=== PATIENT | female | born 1955 | race Caucasian/White ===

== ENCOUNTER → 2017-01-06 | Outpatient (CLI) | payer BC ==
--- NOTE | 2017-01-07 13:24 | CT ---
EXAM DATE: 01/06/17 PATIENT'S AGE: 61 Patient: HOLLI BRIAN Facility: [place], [place] Site . Site : 1955 Study: CT Facial [id number]/10/2017 11:23:51 AM Ordering Physician: Eamon Kline Final Report: INDICATION: Chronic sinusitis. TECHNIQUE: CT sinus without contrast. COMPARISON: None. FINDINGS: Paranasal sinuses: Prominent retention cyst is in the left maxillary sinus. Mucosal thickening is present in both maxillary sinuses. Remainder of the paranasal sinuses are clear. The ostiomeatal units are obstructed bilaterally by mucosal thickening. The fovea ethmoidalis and orbital donovan are intact. The nasal septum is midline and intact. The nasal turbinates are normal. Orbits and globes: Unremarkable. Visualized intracranial contents: Unremarkable. Soft tissues: Unremarkable. IMPRESSION: Moderate bilateral maxillary inflammatory sinus disease with obstruction of the ostiomeatal units. Dictated by Moises Blackwood MD @ Jan 07 2017 6:58AM (Electronic Signature) Report Signed by Proxy and Original Signed Document filed in the Medical Record. [facility]
== END ==
LOC: MW.DI 09:59
PROVIDERS: ATTEND Otolaryngology
DX: J32.9 Chronic sinusitis, unspecified (principal); J32.0 Chronic maxillary sinusitis; J34.89 Other specified disorders of nose and nasal sinuses
CPT/HCPCS: 70486; 70486-26

== ENCOUNTER → 2017-01-14 | Outpatient (CLI) | payer BC | LOC: MW.CHENT 16:03 | PROVIDERS: ATTEND Otolaryngology | DX: J31.0 Chronic rhinitis (principal); H93.12 Tinnitus, left ear | CPT/HCPCS: 36415; 82784; 82785; 82787; 86003; 86317 ==

== ENCOUNTER 2020-04-08 12:14 | Emergency (ER) | payer OTHER ==
[2020-04-08] MEDS ORDERED: Sodium Chloride 0.9% 10 ML Syringe FLUSH PRN (12:26)
[2020-04-08] MEDS ORDERED: Aspirin 81 MG Tab.Chew PO ONE (12:26)
[2020-04-08] MEDS ORDERED: Sodium Chloride 0.9% 2.5 ML Syringe FLUSH PRN ×2 (12:26)
--- NOTE | 2020-04-08 12:29 | EDM.PDOC ---
ED HPI GENERAL MEDICAL PROBLEM - General Chief Complaint: Chest Pain Stated Complaint: CHEST PAIN Time Seen by Provider: 04/08/20 12:30 - History of Present Illness INITIAL COMMENTS - FREE TEXT/NARRATIVE: History of present illness: Patient presents with chest pain that began approximately 30 minutes ago sharp left-sided made her short of breath and went away after she arrived in the ED no nausea or vomiting no diaphoresis no leg pain leg swelling no cough congestion no fever chills nothing seems to make it better or worse it went away by itself she has been undergoing some testing because of having some palpitations and low heart rate she apparently had an echo recently but she does not have the results for these things they were done at another facility. She has no history of diabetes smoking or high blood pressure. Review of systems: As per history of present illness and below otherwise all systems reviewed and negative. Past medical history: As per history of present illness and as reviewed below otherwise noncontributory. Surgical history: As per history of present illness and as reviewed below otherwise noncontributory. Social history: No reported history of drug or alcohol abuse. Family history: As per history of present illness and as reviewed below otherwise noncontributory. Physical exam: HEENT: Atraumatic, normocephalic, pupils reactive, negative for conjunctival pallor or scleral icterus, mucous membranes moist, throat clear, neck supple, nontender, trachea midline. Lungs: Clear to auscultation, breath sounds equal bilaterally, chest nontender. Heart: S1S2, regular, negative for clicks, rubs, or JVD. Abdomen: Soft, nondistended, nontender. Negative for masses or hepatosplenomegaly. Negative for costovertebral tenderness. Pelvis: Stable nontender. Genitourinary: Deferred. Rectal: Deferred. Extremities: Atraumatic, negative for cords or calf pain. Neurovascular unremarkable. Neuro: Awake, alert, oriented. Cranial nerves II through XII unremarkable. Cerebellum unremarkable. Motor and sensory unremarkable throughout. Exam nonfocal. Diagnostics: [] Therapeutics: [] Impression: [] Plan: Cardiac work-up chest x-ray reassess. [] Definitive disposition and diagnosis as appropriate pending reevaluation and review of above. chest Pain Score (Numeric/FACES): 8 - Related Data Allergies Allergy/AdvReac Type Severity Reaction Status Date / Time amoxicillin Allergy Cannot Verified 04/08/20 12:35 Remember Penicillins Allergy Cannot Verified 04/08/20 12:35 Remember Home Meds: Home Meds Budesonide/Formoterol [Symbicort 160-4.5 MCG] 2 puff INH BID 04/08/20 [History] Ferrous Sulfate 324 mg PO DAILY 04/08/20 [History] Omeprazole 20 mg PO BIDAC 04/08/20 [History] ED ROS GENERAL - Review of Systems Review Of Systems: See Below ED EXAM, GENERAL - Physical Exam Exam: See Below EKG INTERPRETATION EKG Interpretation Comments: EKG is normal sinus rhythm rate 82 bpm occasional unifocal PVC nonspecific ST-T changes no harika ischemia read and interpreted by me Course - Vital Signs Text/Narrative:: EKG was nonischemic 2 troponins are negative chest x-ray 1 view read interpreted by me no acute cardiopulmonary pathology is evident. Will be discharged she is going to follow-up with her primary care doctors return to the ED for crushing chest pain or other concerns over the weekend. Last Recorded V/S: Last Vital Signs Temp 36.0 C L 04/08/20 12:16 Pulse 67 04/08/20 13:22 Resp 17 04/08/20 13:22 BP 146/68 H 04/08/20 13:22 Pulse Ox 95 04/08/20 13:22 - Orders/Labs/Meds Orders: Active Orders 24 hr Category Date Time Status EKG Documentation Completion [RC] STAT Care 04/08/20 12:27 Active Sodium Chloride 0.9% [Saline Flush] Med 04/08/20 12:26 Active 10 ml FLUSH ASDIRECTED PRN Sodium Chloride 0.9% [Saline Flush] Med 04/08/20 12:26 Active 2.5 ml FLUSH ASDIRECTED PRN Sodium Chloride 0.9% [Saline Flush] Med 04/08/20 12:26 Active 2.5 ml FLUSH ASDIRECTED PRN Saline Lock Insert [OM.PC] Stat Oth 04/08/20 12:26 Ordered Medication Orders Sodium Chloride (Saline Flush) 2.5 ml FLUSH ASDIRECTED PRN PRN Reason: Keep Vein Open Last Admin: 04/08/20 12:36 Dose: 2.5 ml Documented by: RAS Sodium Chloride (Saline Flush) 2.5 ml FLUSH ASDIRECTED PRN PRN Reason: Keep Vein Open Last Admin: 04/08/20 12:36 Dose: 2.5 ml Documented by: RAS Sodium Chloride (Saline Flush) 10 ml FLUSH ASDIRECTED PRN PRN Reason: Keep Vein Open Last Admin: 04/08/20 12:36 Dose: 10 ml Documented by: RAS Labs: Laboratory Tests 04/08/20 04/08/20 04/08/20 Range/Units 12:34 12:34 14:23 WBC 9.69 (4.0-11.0) K/uL RBC 4.79 (4.30-5.90) M/uL Hgb 11.9 L (12.0-16.0) g/dL Hct 39.6 (36.0-46.0) % MCV 82.7 (80.0-98.0) fL MCH 24.8 L (27.0-32.0) pg MCHC 30.1 L (31.0-37.0) g/dL RDW Std Deviation 47.6 (28.0-62.0) fl RDW Coeff of Josiah 16 H (11.0-15.0) % Plt Count 313 (150-400) K/uL MPV 11.10 (7.40-12.00) fL Neut % (Auto) 53.5 (48.0-80.0) % Lymph % (Auto) 32.9 (16.0-40.0) % Wheeler % (Auto) 7.3 (0.0-15.0) % Eos % (Auto) 5.2 (0.0-7.0) % Baso % (Auto) 1.1 (0.0-1.5) % Neut # (Auto) 5.2 (1.4-5.7) K/uL Lymph # (Auto) 3.2 H (0.6-2.4) K/uL Wheeler # (Auto) 0.7 (0.0-0.8) K/uL Eos # (Auto) 0.5 (0.0-0.7) K/uL Baso # (Auto) 0.1 (0.0-0.1) K/uL Nucleated RBC % 0.0 /100WBC Nucleated RBCs # 0 K/uL Sodium 141 (136-145) mmol/L Potassium 3.9 (3.5-5.1) mmol/L Chloride 105 (98-107) mmol/L Carbon Dioxide 25.5 (21.0-32.0) mmol/L BUN 11 (7.0-18.0) mg/dL Creatinine 1.0 (0.6-1.0) mg/dL Est Cr Clr Drug Dosing 48.43 mL/min Estimated GFR (MDRD) 55.6 ml/min Glucose 104 (74-106) mg/dL Calcium 9.0 (8.5-10.1) mg/dL Total Bilirubin 0.2 (0.2-1.0) mg/dL AST 19 (15-37) IU/L ALT 23 (14-63) IU/L Alkaline Phosphatase 127 H (46-116) U/L Troponin I < 0.050 < 0.050 (0.000-0.056) ng/mL Total Protein 7.2 (6.4-8.2) g/dL Albumin 3.8 (3.4-5.0) g/dL Globulin 3.4 (2.6-4.0) g/dL Albumin/Globulin Ratio 1.1 (0.9-1.6) Meds: Medications Generic Name Dose Route Start Last Admin Trade Name Freq PRN Reason Stop Dose Admin Sodium Chloride 2.5 ml 04/08/20 12:26 04/08/20 12:36 Saline Flush FLUSH 2.5 ml ASDIRECTED PRN Administration Keep Vein Open Sodium Chloride 2.5 ml 04/08/20 12:26 04/08/20 12:36 Saline Flush FLUSH 2.5 ml ASDIRECTED PRN Administration Keep Vein Open Sodium Chloride 10 ml 04/08/20 12:26 04/08/20 12:36 Saline Flush FLUSH 10 ml ASDIRECTED PRN Administration Keep Vein Open Discontinued Medications Generic Name Dose Route Start Last Admin Trade Name Freq PRN Reason Stop Dose Admin Aspirin 324 mg 04/08/20 12:26 04/08/20 12:36 Aspirin PO 04/08/20 12:27 324 mg ONETIME ONE Administration Aspirin Confirm 04/08/20 12:35 04/08/20 12:39 Aspirin Administered 04/08/20 12:36 Not Given Dose 324 mg .ROUTE .STK-MED ONE Departure - Departure Time of Disposition: 15:50 Disposition: Home, Self-Care 01 Condition: Good Clinical Impression: Chest pain - Discharge Information *PRESCRIPTION DRUG MONITORING PROGRAM REVIEWED*: Not Applicable *COPY OF PRESCRIPTION DRUG MONITORING REPORT IN PATIENT PARTH: Not Applicable Instructions: Nonspecific Chest Pain, Adult Referrals: Geno Richards NP [Primary Care Provider] - Forms: ED Department Discharge Additional Instructions: The following information is given to patients seen in the emergency department who are being discharged to home. This information is to outline your options for follow-up care. We provide all patients seen in our emergency department with a follow-up referral. The need for follow-up, as well as the timing and circumstances, are variable depending upon the specifics of your emergency department visit. If you don't have a primary care physician on staff, we will provide you with a referral. We always advise you to contact your personal physician following an emergency department visit to inform them of the circumstance of the visit and for follow-up with them and/or the need for any referrals to a consulting specialist. The emergency department will also refer you to a specialist when appropriate. This referral assures that you have the opportunity for follow-up care with a specialist. All of these measure are taken in an effort to provide you with optimal care, which includes your follow-up. Under all circumstances we always encourage you to contact your private physician who remains a resource for coordinating your care. When calling for follow-up care, please make the office aware that this follow-up is from your recent emergency room visit. If for any reason you are refused follow-up, please contact the [facility] Emergency Department at and asked to speak to the emergency department charge nurse. Sepsis Event Note (ED) - Focused Exam Vital Signs: Vital Signs Temp Pulse Resp BP Pulse Ox 04/08/20 13:22 67 17 146/68 H 95 04/08/20 13:07 65 174/77 H 95 04/08/20 12:52 67 17 176/75 H 94 L 04/08/20 12:37 69 189/85 H 96 04/08/20 12:16 36.0 C L 82 20 208/98 H 99 - My Orders Last 24 Hours: My Active Orders 04/08/20 12:26 Sodium Chloride 0.9% [Saline Flush] 10 ml FLUSH ASDIRECTED PRN Sodium Chloride 0.9% [Saline Flush] 2.5 ml FLUSH ASDIRECTED PRN Sodium Chloride 0.9% [Saline Flush] 2.5 ml FLUSH ASDIRECTED PRN Saline Lock Insert [OM.PC] Stat 04/08/20 12:27 EKG Documentation Completion [RC] STAT - Assessment/Plan Last 24 Hours: My Active Orders 04/08/20 12:26 Sodium Chloride 0.9% [Saline Flush] 10 ml FLUSH ASDIRECTED PRN Sodium Chloride 0.9% [Saline Flush] 2.5 ml FLUSH ASDIRECTED PRN Sodium Chloride 0.9% [Saline Flush] 2.5 ml FLUSH ASDIRECTED PRN Saline Lock Insert [OM.PC] Stat 04/08/20 12:27 EKG Documentation Completion [RC] STAT
[2020-04-08] MEDS ORDERED: Aspirin 81 MG Tab.Chew ONE (12:35)
[2020-04-08 13:07] LABS: BLOOD UREA NITROGEN,BUN 11 mg/dL (7.0-18.0); CARBON DIOXIDE,CO2 25.5 mmol/L (21.0-32.0); CHLORIDE,CL 105 mmol/L (98-107); GLUCOSE RANDOM 104 mg/dL (74-106); POTASSIUM,K 3.9 mmol/L (3.5-5.1); SODIUM,NA 141 mmol/L (136-145)
--- NOTE | 2020-04-08 13:08 | CR ---
INDICATION: Chest pain COMPARISON: None TECHNIQUE: A centimeter portable study was acquired. FINDINGS: TUBES AND LINES: None. HEART AND MEDIASTINUM: The heart size is normal. The mediastinal contour appears normal for patient age. LUNGS AND PLEURAL SPACES: The lungs appear normal.There pleural spaces are unremarkable. OSSEOUS STRUCTURES: Age-appropriate appearance. No acute focal finding. IMPRESSION: Normal single-view chest radiograph. Dictated by Francisco Almaguer MD @ Apr 08 2020 1:06PM Signed by Dr. Francisco Almaguer @ Apr 08 2020 1:07PM
== END 2020-04-08 16:30 | disposition home or self-care (01) ==
LOC: MW.ED 12:14
DX: R07.9 Chest pain, unspecified (principal); Z88.0 Allergy status to penicillin; Z88.1 Allergy status to other antibiotic agents; Z79.899 Other long term (current) drug therapy
CPT/HCPCS: 36415; 71045; 80053; 84484; 85025; 93005; 99285; A9270; 99284

== ENCOUNTER 2020-12-10 10:09 | Emergency (ER) | payer OTHER ==
[2020-12-10] MEDS ORDERED: Sodium Chloride 0.9% 2.5 ML Syringe FLUSH PRN (10:40)
[2020-12-10] MEDS ORDERED: Sodium Chloride 0.9% 10 ML Syringe FLUSH PRN (10:40)
[2020-12-10] MEDS ORDERED: Ketorolac 30 MG/ML SDV IVPUSH ONE (10:40)
[2020-12-10] MEDS ORDERED: Ondansetron 4 MG/2 ML SDV IVPUSH ONE (10:40)
[2020-12-10] MEDS ORDERED: Sodium Chloride 0.9% 1,000 ML IV ONE (10:40)
[2020-12-10] MEDS ORDERED: Morphine 4 MG/ML Syringe IVPUSH ONE (10:41)
[2020-12-10 11:26] LABS: BLOOD UREA NITROGEN,BUN 14 mg/dL (7.0-18.0); CHLORIDE,CL 102 mmol/L (98-107); GLUCOSE RANDOM 162 mg/dL (74-106); LIPASE 148 U/L (73-393); POTASSIUM,K 3.7 mmol/L (3.5-5.1); SODIUM,NA 141 mmol/L (136-145)
--- NOTE | 2020-12-10 11:31 | EDM.PDOC ---
ED HPI GENERAL MEDICAL PROBLEM - General Stated Complaint: PAIN IN SIDE FLANK Time Seen by Provider: 12/10/20 10:11 Source of Information: Reports: Patient History Limitations: Reports: No Limitations - History of Present Illness INITIAL COMMENTS - FREE TEXT/NARRATIVE: HISTORY AND PHYSICAL: History of present illness: Patient is a 65-year-old female presented to the ED with her daughter with concerns of RUQ abdominal pain since this morning. Patient states that she woke up in the middle her night with pain of her RUQ pain with nausea. Patient states that she has a history of gallstones and in the past has had "gallbladder attacks ". Patient states that this feels similar to her past gallbladder issues. Patient states that she has not followed up to get her gallbladder removed. She has a history of hyperlipidemia, hypertension, and COPD. Patient denies fever, chills, chest pain, shortness of breath, or cough. Denies headache, neck stiff ness, change in vision, syncope, or near syncope. Denies vomiting, abdominal pain, diarrhea, constipation, or dysuria. Has not noted any blood in urine or stool. Patient has been eating and drinking appropriately prior to onset of symptoms. Review of systems: As per history of present illness and below otherwise all systems reviewed and negative. Past medical history: As per history of present illness and as reviewed below otherwise noncontr ibutory. Surgical history: As per history of present illness and as reviewed below otherwise noncontributory. Social history: See social history for further information Family history: As per history of present illness and as reviewed below otherwise noncontributory. Physical exam: General: Patient is alert, oriented, and in no acute distress. Patient laying on exam table, holding her abdomen, appearing uncomfortable. Vitals stable and reviewed by me. HEENT: Atraumatic, normocephalic, pupils equal and reactive bilaterally, negative for conjunctival pallor or scleral icterus, mucous membranes moist, TMs normal bilaterally, throat clear, neck supple, nontender, trachea midline. No drooling or trismus noted. No meningeal signs. No hot potato voice noted. Lungs: Clear to auscultation, breath sounds equal bilaterally, chest nontender. Heart: S1S2, regular rate and rhythm without overt murmur Abdomen: Soft, nondistended, moderate-severe pain of the RUQ with positive muñoz sign, negative rebound. Negative for masses or hepatosplenomegaly. Negative for costovertebral tenderness. Pelvis: Stable nontender. Genitourinary: Deferred. Rectal: Deferred. Skin: Intact, warm, dry. No lesions or rashes noted. Extremities: Atraumatic, negative for cords or calf pain. Neurovascular unremarkable. Neuro: Awake, alert, oriented. Cranial nerves II through XII unremarkable. Cerebellum unremarkable. Motor and sensory unremarkable throughout. Exam nonfocal. Notes: On initial exam, patient is vitally stable but does appear quite uncomfortable holding her abdomen. She does have significant right upper quadrant tenderness with a positive Muñoz sign on exam. She does have a history of gallstones and I am concerned about possible gallbladder pathology. Will obtain labwork including cardiac evaluation as well as RUQ US and abd/pelvic CT scan w cont. See Dr. Moreno dictation for EKG interpretation Patient's lab work does show mild leukocytosis at 13.35 with a normal lactate. This x-ray shows no acute airspace disease. Right upper quadrant ultrasound shows gallstones with a mildly distended gallbladder. No gallbladder wall thickening or surrounding fluid. No biliary duct dilation. Abdominal pelvic CT scan shows a fluid-filled colon, possibly suggestive of diarrheal illness. No mural thickening, perienteric edema, mural stratification, or bowel obstruction. Small sliding-type hiatal hernia. Low- density pathic lesions which are consistent with benign cysts. Distended gallbladder. There is no adjacent fat stranding or pericholecystic fluid on CT. I did call and speak to the general surgeon on-call,Dr. Louise, general surgery, and thoroughly discussed patient's case and requested that she follows- up with him in the clinic outpatient. Upon reexamination of patient, she is much more comfortable given therapeutics today in the ED. She remains vitally stable. All diagnostics discussed with patient including all incidental findings of imaging today. Discussed importance for follow-up with a general surgeon as well as her primary care provider for incidental findings of imaging today. Strict return precautions thoroughly discussed with patient. Voices understanding and is agreeable to plan of care. Denies any further questions or concerns at this time. Diagnostics: EKG, CBC, CMP, UA, Trop, lipase, CXR, RUQ US, abdomen/pelvis CT with contrast Therapeutics: Normal saline, morphine, Zofran, Toradol, Dilaudid Prescription: None Impression: Symptomatic cholelithiasis RUQ abdominal pain Plan: 1. You can alternate ibuprofen and Tylenol as directed for pain and discomfort. 2. Follow-up with the general surgeon / primary care provider as discussed. Return to the ED as needed and as discussed. Definitive disposition and diagnosis as appropriate pending reevaluation and review of above. abdomen Pain Score (Numeric/FACES): 10 - Related Data Allergies Allergy/AdvReac Type Severity Reaction Status Date / Time amoxicillin Allergy Cannot Verified 12/10/20 11:23 Remember cefuroxime [From Ceftin] Allergy Other Verified 12/10/20 13:21 cephalexin [From Keflex] Allergy Other Verified 12/10/20 13:21 doxycycline Allergy Other Verified 12/10/20 13:21 erythromycin base Allergy Other Verified 12/10/20 13:21 Penicillins Allergy Cannot Verified 12/10/20 11:23 Remember Home Meds: Home Meds Budesonide/Formoterol [Symbicort 160-4.5 MCG] 2 puff INH BID 04/08/20 [History] Omeprazole 20 mg PO BIDAC 04/08/20 [History] Past Medical History Cardiovascular History: Reports: Other (See Below) Other Cardiovascular History: was on heart monitor on Fri-Fri for monitoring of slow heart rate Genitourinary History: Reports: None - Past Surgical History Cardiovascular Surgical History: Reports: None Female Surgical History: Reports: Tubal Ligation Musculoskeletal Surgical History: Reports: Knee Replacement, Other (See Below) Other Musculoskeletal Surgeries/Procedures:: bilateral knee; R arm sx Social & Family History - Family History Family Medical History: No Pertinent Family History - Caffeine Use Caffeine Use: Reports: None ED ROS GENERAL - Review of Systems Review Of Systems: Comprehensive ROS is negative, except as noted in HPI. ED EXAM, GENERAL - Physical Exam Exam: See Below (see dictation) Course - Vital Signs Last Recorded V/S: Last Vital Signs Temp 96.7 F L 12/10/20 10:33 Pulse 65 12/10/20 13:15 Resp 17 12/10/20 13:45 BP 119/39 L 12/10/20 13:15 Pulse Ox 96 12/10/20 13:45 - Orders/Labs/Meds Orders: Active Orders 24 hr Category Date Time Status EKG Documentation Completion [RC] STAT Care 12/10/20 10:41 Active Sodium Chloride 0.9% [Saline Flush] Med 12/10/20 10:40 Active 10 ml FLUSH ASDIRECTED PRN Sodium Chloride 0.9% [Saline Flush] Med 12/10/20 10:40 Active 2.5 ml FLUSH ASDIRECTED PRN Saline Lock Insert [OM.PC] Stat Oth 12/10/20 10:40 Ordered Medication Orders Sodium Chloride (Sodium Chloride 0.9% 10 Ml Syringe) 10 ml FLUSH ASDIRECTED PRN PRN Reason: Keep Vein Open Last Admin: 12/10/20 11:17 Dose: 10 ml Documented by: RAS Sodium Chloride (Sodium Chloride 0.9% 2.5 Ml Syringe) 2.5 ml FLUSH ASDIRECTED PRN PRN Reason: Keep Vein Open Last Admin: 12/10/20 11:17 Dose: 2.5 ml Documented by: RAS Labs: Laboratory Tests 12/10/20 12/10/20 12/10/20 Range/Units 10:51 10:51 11:48 WBC 13.35 H (4.0-11.0) K/uL RBC 4.70 (4.30-5.90) M/uL Hgb 13.5 (12.0-16.0) g/dL Hct 42.1 (36.0-46.0) % MCV 89.6 (80.0-98.0) fL MCH 28.7 (27.0-32.0) pg MCHC 32.1 (31.0-37.0) g/dL RDW Std Deviation 46.3 (28.0-62.0) fl RDW Coeff of Josiah 14 (11.0-15.0) % Plt Count 252 (150-400) K/uL MPV 10.90 (7.40-12.00) fL Neut % (Auto) 87.8 H (48.0-80.0) % Lymph % (Auto) 6.2 L (16.0-40.0) % [place] % (Auto) 5.0 (0.0-15.0) % Eos % (Auto) 0.7 (0.0-7.0) % Baso % (Auto) 0.3 (0.0-1.5) % Neut # (Auto) 11.7 H (1.4-5.7) K/uL Lymph # (Auto) 0.8 (0.6-2.4) K/uL [place] # (Auto) 0.7 (0.0-0.8) K/uL Eos # (Auto) 0.1 (0.0-0.7) K/uL Baso # (Auto) 0.0 (0.0-0.1) K/uL Nucleated RBC % 0.0 /100WBC Nucleated RBCs # 0 K/uL Sodium 141 (136-145) mmol/L Potassium 3.7 (3.5-5.1) mmol/L Chloride 102 (98-107) mmol/L Carbon Dioxide 29.0 (21.0-32.0) mmol/L BUN 14 (7.0-18.0) mg/dL Creatinine 1.1 H (0.6-1.0) mg/dL Est Cr Clr Drug Dosing 43.44 mL/min Estimated GFR (MDRD) 49.7 ml/min Glucose 162 H (74-106) mg/dL Calcium 8.8 (8.5-10.1) mg/dL Total Bilirubin 0.5 (0.2-1.0) mg/dL AST 21 (15-37) IU/L ALT 34 (14-63) IU/L Alkaline Phosphatase 142 H (46-116) U/L Troponin I < 0.050 (0.000-0.056) ng/mL Total Protein 7.6 (6.4-8.2) g/dL Albumin 3.7 (3.4-5.0) g/dL Globulin 3.9 (2.6-4.0) g/dL Albumin/Globulin Ratio 0.9 (0.9-1.6) Lipase 148 (73-393) U/L Urine Color YELLOW Urine Appearance SLT CLOUDY Urine pH 8.5 H (5.0-8.0) Ur Specific [place] 1.015 (1.001-1.035) Urine Protein NEGATIVE (NEGATIVE) mg/dL Urine Glucose (UA) NEGATIVE (NEGATIVE) mg/dL Urine Ketones NEGATIVE (NEGATIVE) mg/dL Urine Occult Blood NEGATIVE (NEGATIVE) Urine Nitrite NEGATIVE (NEGATIVE) Urine Bilirubin NEGATIVE (NEGATIVE) Urine Urobilinogen 0.2 (<2.0) EU/dL Ur Leukocyte Esterase NEGATIVE (NEGATIVE) Meds: Medications Generic Name Dose Route Start Last Admin Trade Name Freq PRN Reason Stop Dose Admin Sodium Chloride 10 ml 12/10/20 10:40 12/10/20 11:17 Sodium Chloride 0.9% 10 Ml Syringe FLUSH 10 ml ASDIRECTED PRN Administration Keep Vein Open Sodium Chloride 2.5 ml 12/10/20 10:40 12/10/20 11:17 Sodium Chloride 0.9% 2.5 Ml Syringe FLUSH 2.5 ml ASDIRECTED PRN Administration Keep Vein Open Discontinued Medications Generic Name Dose Route Start Last Admin Trade Name Gualbertoq PRN Reason Stop Dose Admin Hydromorphone HCl 1 mg 12/10/20 12:48 12/10/20 13:18 Hydromorphone 1 Mg/Ml Syringe IVPUSH 12/10/20 12:49 1 mg ONETIME ONE Administration Sodium Chloride 1,000 mls @ 999 mls/hr 12/10/20 10:40 12/10/20 11:11 Normal Saline IV 12/10/20 11:40 999 mls/hr BOLUS ONE Administration Iopamidol 100 ml 12/10/20 12:11 12/10/20 12:12 Iopamidol 755 Mg/Ml 500 Ml Multipack Bottle IVPUSH 12/10/20 12:12 100 ml ONETIME ONE Administration Ketorolac Tromethamine 30 mg 12/10/20 10:40 12/10/20 11:14 Ketorolac 30 Mg/Ml Sdv IVPUSH 12/10/20 10:41 30 mg ONETIME ONE Administration Morphine Sulfate 4 mg 12/10/20 10:41 12/10/20 11:16 Morphine 4 Mg/Ml Syringe IVPUSH 12/10/20 10:42 4 mg ONETIME ONE Administration Ondansetron HCl 4 mg 12/10/20 10:40 12/10/20 11:11 Ondansetron 4 Mg/2 Ml Sdv IVPUSH 12/10/20 10:41 4 mg ONETIME ONE Administration Departure - Departure Time of Disposition: 13:02 Disposition: Home, Self-Care 01 Clinical Impression: Symptomatic cholelithiasis, Right upper quadrant abdominal pain - Discharge Information Instructions: Cholelithiasis, [id number], Abdominal Pain, Adult, [id number], Gallbladder Eating Plan Referrals: PCP,None [Primary Care Provider] - Forms: ED Department Discharge Additional Instructions: The following information is given to patients seen in the emergency department who are being discharged to home. This information is to outline your options for follow-up care. We provide all patients seen in our emergency department with a follow-up referral. The need for follow-up, as well as the timing and circumstances, are variable depending upon the specifics of your emergency department visit. If you don't have a primary care physician on staff, we will provide you with a referral. We always advise you to contact your personal physician following an emergency department visit to inform them of the circumstance of the visit and for follow-up with them and/or the need for any referrals to a consulting specialist. The emergency department will also refer you to a specialist when appropriate. This referral assures that you have the opportunity for follow-up care with a sp ecialist. All of these measure are taken in an effort to provide you with optimal care, which includes your follow-up. Under all circumstances we always encourage you to contact your private physicia n who remains a resource for coordinating your care. When calling for follow-up care, please make the office aware that this follow-up is from your recent emergency room visit. If for any reason you are refused follow-up, please contact the [facility] Emergency Department at and asked to speak to the emergency department charge nurse. [facility] [address] [place] [id number] [address] [facility] Professional Building [address] [facility], [address] [place] [address] 1. You can alternate ibuprofen and Tylenol as directed for pain and discomfort. 2. Follow-up with the general surgeon / primary care provider as discussed. Return to the ED as needed and as discussed. Sepsis Event Note (ED) - Focused Exam Vital Signs: Vital Signs Temp Pulse Resp BP Pulse Ox 12/10/20 13:45 17 96 03/14/21 13:15 65 65 H 119/39 L 95 12/10/20 12:45 69 17 137/50 L 95 12/10/20 12:15 67 17 192/60 H 96 12/10/20 10:33 96.7 F L 66 19 174/77 H 94 L - My Orders Last 24 Hours: My Active Orders 12/10/20 10:40 Sodium Chloride 0.9% [Saline Flush] 10 ml FLUSH ASDIRECTED PRN Sodium Chloride 0.9% [Saline Flush] 2.5 ml FLUSH ASDIRECTED PRN Saline Lock Insert [OM.PC] Stat 12/10/20 10:41 EKG Documentation Completion [RC] STAT - Assessment/Plan Last 24 Hours: My Active Orders 12/10/20 10:40 Sodium Chloride 0.9% [Saline Flush] 10 ml FLUSH ASDIRECTED PRN Sodium Chloride 0.9% [Saline Flush] 2.5 ml FLUSH ASDIRECTED PRN Saline Lock Insert [OM.PC] Stat 12/10/20 10:41 EKG Documentation Completion [RC] STAT
--- NOTE | 2020-12-10 11:33 | US ---
HISTORY: Right upper quadrant abdominal pain. TECHNIQUE: Limited abdominal ultrasound. COMPARISON: No prior. FINDINGS: Pancreatic tail is obscured by bowel gas. No abnormality of the visualized portions of pancreas. Liver size within normal limits measuring 15 cm. No intrahepatic or extrahepatic biliary ductal dilatation. The gallbladder is distended. Gallstones are present. No gallbladder wall thickening. No surrounding fluid. Per the nanotechnology engineering technologist, the patient was tender over the gallbladder during scanning. The right kidney appears unremarkable. IMPRESSION: 1. Gallstones within a mildly distended gallbladder. No gallbladder wall thickening or surrounding fluid. Per the nanotechnology engineering technologist, the patient was tender over the gallbladder during scanning. 2. No biliary ductal dilatation. Dictated by Efraín Banda MD @ Dec 10 2020 11:30AM Signed by Dr. Efraín Banda @ Dec 10 2020 11:32AM
--- NOTE | 2020-12-10 11:36 | PCM.SN.2 ---
- Free Text/Narrative Note: The first-degree heart block with a rate of 66. [place] 227. [place] 73. Nonspecific ST changes in the inferior leads. Compared to 04/08/2020 PVCs are no longer present. First-degree block is new. Impression first-degree block no obvious injury.
[2020-12-10] MEDS ORDERED: Iopamidol 755 MG/ML 500 ML Multipack Bottle IVPUSH ONE (12:11)
--- NOTE | 2020-12-10 12:21 | CR ---
INDICATION: Dyspnea, chest pain. TECHNIQUE: Chest 1 view. COMPARISON: 04/08/2020. FINDINGS: Cardiovascular and mediastinum: Heart size and vasculature are normal in caliber and appearance. Mediastinum is within normal limits. Lungs and pleural space: Lungs are clear. No sign of infiltrate or mass. No sign of pleural effusion. No pneumothorax. Bones and soft tissues: No significant findings. IMPRESSION: No acute airspace disease. Dictated by César Betancourt MD @ Dec 10 2020 12:19PM Signed by Dr. César Betancourt @ Dec 10 2020 12:20PM
--- NOTE | 2020-12-10 12:34 | CT ---
HISTORY: Right upper quadrant abdominal pain. COMPARISON: Ultrasound of the abdomen, 12/10/2020. TECHNIQUE: CT of the abdomen and pelvis. 100 cc of [id number] IV. Coronal/sagittal reconstruction images. FINDINGS: Lung bases: There is a small sliding-type hiatal hernia. There is no pleural or pericardial effusion. Thin-walled cysts are present at both lung bases, likely emphysema. Right basilar dependent atelectasis. There is no acute airspace disease. There is no basilar pneumothorax. Abdomen/pelvis: Low-density hepatic lesions are compatible with benign cysts. There is no common bile duct stone or mass. The gallbladder is distended. There are no associated inflammatory changes. Cholelithiasis was noted on recent ultrasound. Gallstones are subtle on CT. There is no adrenal mass. There is no hydronephrosis. There is no perinephric fluid collection. There is no striated nephrogram. The spleen size is normal. There is no pancreatic mass or pancreatic duct dilation. There is no glandular atrophy. There is no free air. There is no adnexal mass. There is no mucosal hyper enhancement. There is no mural thickening or perienteric edema. The colon appears fluid filled. There is no evidence for appendicitis. Nonenlarged lymph nodes are present in the common femoral chains. There is no pelvic sidewall, retroperitoneal, or gastrohepatic ligament adenopathy. The bone windows demonstrate a fracture deformity of the left pubic bone, which is chronic. Degenerative changes at the symphysis pubis. Anterior/posterior columns of the acetabula are intact. Degenerative changes are present in the lower lumbar spine. The vertebral body heights are maintained on sagittal reconstruction images, with the exception of an age-indeterminate fracture deformity at T12. IMPRESSION: 1. Fluid-filled colon, which may be correlated for a history of diarrheal illness. 2. No mural thickening, perienteric edema, mural stratification, or bowel obstruction. 3. Small sliding type hiatal hernia. 4. Low-dense hepatic lesions are consistent with benign cysts. 5. Distended gallbladder. There is no adjacent fat stranding or pericholecystic fluid on CT. Please note that all CT scans at this facility use dose modulation, iterative reconstruction, and/or weight-based dosing when appropriate to reduce radiation dose to as low as reasonably achievable. Dictated by César Betancourt MD @ [facility] 2020 12:23PM Signed by Dr. César Betancourt @ [facility] 2020 12:32PM
[2020-12-10] MEDS ORDERED: HYDROmorphone 1 MG/ML Syringe IVPUSH ONE (12:48)
== END 2020-12-10 14:26 | disposition home or self-care (01) ==
LOC: MW.ED 10:09
DX: K80.20 Calculus of gallbladder without cholecystitis without obstruction (principal); Z88.0 Allergy status to penicillin; Z88.1 Allergy status to other antibiotic agents
CPT/HCPCS: 71045; 74177; 76705; 80053; 81003; 83690; 84484; 85025; 93005; 96374; 96375; 99284; J1170; J1885; J2270; J2405; J7030; Q9967

== ENCOUNTER 2020-12-13 08:46 | Day surgery (SDC) | payer OTHER ==
[~2020-12-13 08:46] MED LIST: Glycopyrrolate 0.2 MG/ML SDV ONE; Ketorolac 30 MG/ML SDV ONE; Lidocaine 2% 5 ML SDV ONE; Midazolam 1 MG/ML 2 ML SDV ONE; Ondansetron 4 MG/2 ML SDV ONE; Propofol 200 MG/20 ML SDV ONE; Rocuronium Bromide 50 MG/5 ML Syringe ONE; fentaNYL 100 MCG/2 ML SDV ONE
[2020-12-13] MEDS ORDERED: Lactated Ringers 1,000 ML IV SCH ×2 (09:00→11:45)
[2020-12-13] MEDS ORDERED: Ciprofloxacin in D5W 400 MG in Premix Bag 1 BAG IV SCH ×2 (09:00)
[2020-12-13] MEDS ORDERED: Acetaminophen 1,000 MG in Premix Bag 1 BAG IV PRN (09:25)
[2020-12-13] MEDS ORDERED: fentaNYL 100 MCG/2 ML SDV IVPUSH PRN (09:30)
[2020-12-13] MEDS ORDERED: Scopolamine 1.5 MG Transdermal Patch ONE (09:31)
[2020-12-13] MEDS ORDERED: ceFAZolin 1 GM Vial ONE (09:34)
[2020-12-13] MEDS ORDERED: Bupivacaine 0.5% 10 ML SDV ONE (09:34)
--- NOTE | 2020-12-13 09:39 | PCM.PREANE ---
Preanesthetic Assessment - Anesthesia/Transfusion/Family Hx Anesthesia History: Prior Anesthesia Without Reaction Family History of Anesthesia Reaction: No Transfusion History: No Prior Transfusion(s) - Review of Systems General: No Symptoms Pulmonary: No Symptoms Cardiovascular: No Symptoms Gastrointestinal: No Symptoms Neurological: No Symptoms Other: Reports: None - Physical Assessment NPO Status Date: 12/13/20 NPO Status Time: 06:00 Vital Signs: Last Vital Signs Temp 35.7 C L 12/13/20 09:02 Pulse 63 12/13/20 09:02 Resp 15 12/13/20 09:02 BP 141/67 H 12/13/20 09:02 Pulse Ox 96 12/13/20 09:02 Height: 1.63 m Weight: 92.079 kg ASA Class: 2 Mental Status: Alert & Oriented x3 Airway Class: Mallampati = 2 Dentition: Reports: Partial (right lower partial) Thyro-Mental Finger Breadths: 3 Mouth Opening Finger Breadths: 3 ROM/Head Extension: Full Lungs: Clear to Auscultation, Normal Respiratory Effort Cardiovascular: Regular Rate, Regular Rhythm - Allergies Allergies/Adverse Reactions: Allergies Allergy/AdvReac Type Severity Reaction Status Date / Time amoxicillin Allergy Rash Verified 12/12/20 12:44 cefuroxime [From Ceftin] Allergy Cannot Verified 12/12/20 12:44 Remember cephalexin [From Keflex] Allergy Cannot Verified 12/12/20 12:44 Remember ciprofloxacin [From Cipro] Allergy Cannot Verified 12/12/20 13:07 Remember doxycycline Allergy stomach Verified 12/12/20 12:44 upset/rash erythromycin base Allergy stomach Verified 12/12/20 12:44 upset/rash fentanyl Allergy Other Verified 12/12/20 13:07 metronidazole Allergy Diarrhea Verified 12/12/20 13:07 Penicillins Allergy Rash Verified 12/12/20 12:44 - Acknowledgements Anesthesia Type Planned: General Anesthesia (The patient understands and accepts the anesthetic risks and benefits of General Anesthesia. All questions answered. Consent signed. ) Pt an Appropriate Candidate for the Planned Anesthesia: Yes Alternatives and Risks of Anesthesia Discussed w Pt/Guardian: Yes Pt/Guardian Understands and Agrees with Anesthesia Plan: Yes PreAnesthesia Questionnaire HEENT History: Reports: Other (See Below) Other HEENT History: wears glasses, cherri hearing aids, upper partial Cardiovascular History: Reports: High Cholesterol, Hypertension, Other (See Below) (DECEMBER 10, 2020 EKG NSR.) Respiratory History: Reports: Asthma (used inhaler this morning. last time used was one month.), COPD (mild), Other (See Below) (DECEMBER 10, 2020 CXR NO ACUTE CARDIOPULMONARY DISEASE) Gastrointestinal History: Reports: Cholelithiasis, GERD (controlled), Other (See Below) Other Gastrointestinal History: ulcerative colitis Genitourinary History: Reports: None GUARD RANGE History: Reports: Musculoskeletal History: Reports: Fracture Other Musculoskeletal History: hx fx wrist and rt arm Neurological History: Reports: None Psychiatric History: Reports: Anxiety Endocrine/Metabolic History: Reports: Obesity/BMI 30+ (bmi 35), Osteopenia Hematologic History: Reports: None Immunologic History: Reports: None Oncologic (Cancer) History: Reports: None Dermatologic History: Reports: None - Infectious Disease History Infectious Disease History: Reports: Other (See Below) (COVID NEGATIVE) - Past Surgical History Head Surgeries/Procedures: Reports: None HEENT Surgical History: Reports: Other (See Below) (DENTAL EXTRACTIONS) Other HEENT Surgeries/Procedures: dental implant Cardiovascular Surgical History: Reports: None Respiratory Surgical History: Reports: None GI Surgical History: Reports: Colonoscopy Female Surgical History: Reports: Cystectomy (OVARIAN), D&C, Tubal Ligation Endocrine Surgical History: Reports: None Neurological Surgical History: Reports: None Musculoskeletal Surgical History: Reports: Knee Replacement, Other (See Below) Other Musculoskeletal Surgeries/Procedures:: bilateral partial knee replacements, R arm sx Oncologic Surgical History: Reports: None Dermatological Surgical History: Reports: None - History Comment History Comment: Patient has multiple drug allergies fentanyl, erythromyin, ciprofloxacin, ceftin-reactions are n/v, and no anaphylaxis. amoxicillin-causes a rash. Patient can't recall her reaction to metronidazole or keflex. These drug interactions were reviewed with the patient in great detail. - SUBSTANCE USE Tobacco Use Status *Q: Former Tobacco User (20 YEARS AGO.) Tobacco Use Within Last Twelve Months: No Days Per Week of Alcohol Use: 0 Recreational Drug Use History: No - HOME MEDS Home Medications: Home Meds Budesonide/Formoterol [Symbicort 160-4.5 MCG] 2 puff INH BID PRN 04/08/20 [History] Omeprazole 20 mg PO BIDAC 04/08/20 [History] Albuterol [Ventolin HFA] 2 puff INH ASDIRECTED PRN 12/12/20 [History] Alendronate Sodium 35 mg PO WEEKLY 12/12/20 [History] Calcium Carb, Citrate/Vit D3 [Calcium + D3 ER Tablet] 1 tab PO DAILY 12/12/20 [History] Cholecalciferol (Vitamin D3) [Vitamin D3] 1 tab PO DAILY 12/12/20 [History] Metoprolol Succinate 25 mg PO DAILY 12/12/20 [History] atorvaSTATin Calcium [Atorvastatin Calcium] 40 mg PO DAILY 12/12/20 [History] hydroCHLOROthiazide [Hydrochlorothiazide] 12.5 mg PO DAILY 12/12/20 [History] - CURRENT (IN HOUSE) MEDS Current Meds: Current Medications Fentanyl (Fentanyl 100 Mcg/2 Ml Sdv) 50 mcg IVPUSH Q5M PRN PRN Reason: Pain Ciprofloxacin/Dextrose 400 mg/ (Premix) 200 mls @ 200 mls/hr IV Q12H KAYKAY Lactated Ringer's (Ringers, Lactated) 1,000 mls @ 125 mls/hr IV ASDIRECTED KAYKAY Last Admin: 12/13/20 09:15 Dose: 125 mls/hr Documented by: Acetaminophen 1,000 mg/ Premix 100 mls @ 400 mls/hr IV Q6H PRN PRN Reason: Pain Discontinued Medications Fentanyl (Fentanyl 100 Mcg/2 Ml Sdv) Confirm Administered Dose 200 mcg .ROUTE .STK-MED ONE Stop: 12/13/20 07:28 Glycopyrrolate (Glycopyrrolate 0.2 Mg/Ml Sdv) Confirm Administered Dose 0.8 mg .ROUTE .STK-MED ONE Stop: 12/13/20 07:29 Ketorolac Tromethamine (Ketorolac 30 Mg/Ml Sdv) Confirm Administered Dose 30 mg .ROUTE .STK-MED ONE Stop: 12/13/20 07:29 Lidocaine (Lidocaine 2% 5 Ml Sdv) Confirm Administered Dose 5 ml .ROUTE .STK-MED ONE Stop: 12/13/20 07:29 Midazolam HCl (Midazolam 1 Mg/Ml 2 Ml Sdv) Confirm Administered Dose 2 mg .ROUTE .STK-MED ONE Stop: 12/13/20 07:28 Ondansetron HCl (Ondansetron 4 Mg/2 Ml Sdv) Confirm Administered Dose 4 mg .ROUTE .STK-MED ONE Stop: 12/13/20 07:29 Propofol (Propofol 200 Mg/20 Ml Sdv) Confirm Administered Dose 200 mg .ROUTE .STK-MED ONE Stop: 12/13/20 07:28 Rocuronium [place] (Rocuronium [place] 50 Mg/5 Ml Syringe) Confirm Administered Dose 50 mg .ROUTE .STK-MED ONE Stop: 12/13/20 07:29 Scopolamine (Scopolamine 1.5 Mg Transdermal Patch) Confirm Administered Dose 1.5 mg .ROUTE .STK-MED ONE Stop: 12/13/20 09:32
[2020-12-13] MEDS ORDERED: fentaNYL 100 MCG/2 ML SDV ONE ×2 (10:33→11:13)
[2020-12-13] MEDS ORDERED: Acetaminophen/HYDROcodone 325-5 MG Tab PO PRN (11:45)
[2020-12-13] MEDS ORDERED: Morphine 10 MG/ML Syringe IVPUSH PRN (11:45)
--- NOTE | 2020-12-13 11:48 | PCM.OPNOTE ---
- General Post-Op/Procedure Note Date of Surgery/Procedure: 12/13/20 Operative Procedure(s): Laparoscopic cholecystectomy Pre Op Diagnosis: Symptomatic cholelithiasis Post-Op Diagnosis: Cholelithiasis with chronic cholecystitis Anesthesia Technique: General ET Tube (ASA II) Primary Surgeon: Terry Louise Acid Adjuster: Gilberto Medrano Reason Acid Adjuster Was Necessary: Teaching purposes Fluid Replacement, Intraop: 1,100 Output, Urine Amount: 300 EBL in mLs: 20 Condition: Good Free Text/Narrative:: Intake & Output 12/12/20 12/13/20 12/13/20 19:59 03:59 11:59 Output Total 300 Balance -300 DICTATION 839007 CPT CODE 32471
--- NOTE | 2020-12-13 12:18 | PCM.POSTAN ---
POST ANESTHESIA ASSESSMENT - MENTAL STATUS Mental Status: Alert, Oriented - VITAL SIGNS Vital Signs: Last Vital Signs Temp 36.2 C 12/13/20 11:39 Pulse 47 L 12/13/20 12:10 Resp 14 12/13/20 12:10 BP 160/50 H 12/13/20 12:10 Pulse Ox 98 12/13/20 12:10 - RESPIRATORY Respiratory Status: Respiratory Rate WNL, Airway Patent, O2 Saturation Stable - CARDIOVASCULAR CV Status: Pulse Rate WNL, Blood Pressure Stable - GASTROINTESTINAL GI Status: No Symptoms - PAIN Pain Score: 0 - POST OP HYDRATION Hydration Status: Adequate & Stable - OBSERVATIONS Free Text/Narrative:: No anesthesia problems
--- NOTE | 2020-12-13 15:10 | PCM48HPAN ---
Post Anesthesia Note - EVALUATION WITHIN 48HRS OF ANESTHETIC Vital Signs in Normal Range: Yes Patient Participated in Evaluation: Yes Respiratory Function Stable: Yes Airway Patent: Yes Cardiovascular Function Stable: Yes Hydration Status Stable: Yes Pain Control Satisfactory: Yes Nausea and Vomiting Control Satisfactory: Yes Mental Status Recovered: Yes Vital Signs: Last Vital Signs Temp 36.2 C 12/13/20 12:14 Pulse 51 L 12/13/20 14:00 Resp 15 12/13/20 14:00 BP 154/66 H 12/13/20 14:00 Pulse Ox 98 12/13/20 14:00 - COMMENTS/OBSERVATIONS Free Text/Narrative:: No anesthesia problems
--- NOTE | 2020-12-13 19:20 | OR ---
SURGEON: Terry Louise M.D. DATE OF PROCEDURE: 12/13/2020 OPERATION PERFORMED: Laparoscopic cholecystectomy. PRIMARY SURGEON: Dr. Louise. HEALTH ADVISOR: professional nursing assistant: Dr. Medrano, PGY-2. ANESTHESIA: General endotracheal. ASA CLASSIFICATION: II. PREOPERATIVE DIAGNOSIS: Symptomatic cholelithiasis with biliary colic. POSTOPERATIVE DIAGNOSIS: Cholelithiasis with chronic cholecystitis. ESTIMATED BLOOD LOSS: 20 mL. FLUID REPLACEMENT: 1100 mL of crystalloid. INTRAOPERATIVE URINARY OUTPUT: 300 mL. DESCRIPTION OF PROCEDURE: The patient was taken to the operating room and placed on the operating table in the supine position. Time-out was called for appropriate identification of patient and procedure. Sequential compression boots were placed. Following satisfactory attainment of general endotracheal anesthesia, a Chase catheter was placed in the patient's urinary bladder. The abdomen was prepped with DuraPrep solution. Sterile drapes were applied. Skin just below the umbilicus was infiltrated with 0.5% Marcaine solution. A small transverse incision was made. The wound edges were picked up with retractors and a Veress needle introduced into the peritoneal cavity. Saline drop test was positive. Carbon dioxide pneumoperitoneum was established with release set at 13 cm of water. Once a satisfactory pneumoperitoneum was established, 5-mm camera and port were placed under direct vision. With the camera in place, the right upper quadrant was inspected. Adhesions were present to the gallbladder, although we could see the dome of the gallbladder, which was not acutely inflamed. Under camera vision, 12-mm subxiphoid, 5-mm midclavicular, and 5-mm anterior axillary ports were placed. Each incision was preemptively infiltrated with 0.5% Marcaine solution. The gallbladder was grasped, adhesions were taken down, and we were able to identify and dissect out the cholecystohepatic triangle. The cystic duct was identified first and completely mobilized and followed to its origin from the gallbladder. The structure was serially hemoclipped and divided with the laparoscopic Metzenbaum scissors. Our attention was now turned to the cystic artery which was identified and handled in a similar fashion. Critical view of each structure was identified prior to ligation and clipping. After mobilization, traced to its entry point into the gallbladder and again serially hemoclipped and ligated. The gallbladder was then dissected away from its bed using electrocautery. A small amount of bile was spilled, no stones were spilled. Once the gallbladder was amputated, this was placed in an Endocatch. The bed of the gallbladder was inspected and there was a little bit of oozing present. No bile was seen. The right upper quadrant was irrigated with sterile saline solution, all fluid was aspirated. Surgicel was placed into the bed of the gallbladder. The right hemidiaphragm was then irrigated with 250 mL of saline containing 20 mL of 0.5% Marcaine solution. That fluid was left in place. Under camera vision, the Endocatch containing gallbladder and 12 mm port were removed. Again, under camera vision, 5 mm midclavicular and anterior axillary ports were removed. Finally, the infraumbilical camera and port were removed. Wounds were inspected for hemostasis and small bleeding sites were electrocoagulated. The subxiphoid and infraumbilical incisions were closed in 2 layers approximating the subcutaneous tissue with 3-0 Vicryl and the skin with subcuticular 4-0 Monocryl. The anterior axillary and midclavicular incisions were closed with subcuticular 4-0 Monocryl. All incisions were Steri-Stripped and dressed with sterile Tegaderm pads. Sponge, needle, and instrument counts were all correct. Prior to emergence from anesthesia, the Chase catheter was removed. Following emergence from anesthesia and extubation, the patient was taken to recovery room in stable condition. CECE PATEL /[id number] BLAKE
== END 2020-12-13 15:14 | disposition home or self-care (01) ==
LOC: MW.SDS 08:46
PROVIDERS: ATTEND Surgery
DX: K80.13 Calculus of gallbladder with acute and chronic cholecystitis with obstruction (principal); E78.00 Pure hypercholesterolemia, unspecified; I10 Essential (primary) hypertension; E66.9 Obesity, unspecified; Z88.1 Allergy status to other antibiotic agents; Z88.8 Allergy status to other drugs, medicaments and biological substances; Z79.82 Long term (current) use of aspirin; Z79.899 Other long term (current) drug therapy; Z98.890 Other specified postprocedural states; Z87.891 Personal history of nicotine dependence; Z68.35 Body mass index [BMI] 35.0-35.9, adult
CPT/HCPCS: 47562; 88304; A9270; J0131; J0744; J1885; J2250; J2405; J2704; J3010; J3490; J7120; J0690

== ENCOUNTER 2021-11-13 09:19 | Day surgery (SDC) | payer MEDICARE, OTHER ==
[~2021-11-13 09:19] MED LIST changes: +Albuterol 0.083% 2.5 MG/3 ML Neb Soln NEB PRN; +Bupivacaine 0.5% 30 ML SDV ONE; -Glycopyrrolate 0.2 MG/ML SDV ONE; -Ketorolac 30 MG/ML SDV ONE; +Lactated Ringers 1,000 ML IV SCH; -Lidocaine 2% 5 ML SDV ONE; +Lidocaine 2% Jelly 30 ML Tube ONE; +Metoclopramide 10 MG/2 ML SDV IVPUSH PRN; -Midazolam 1 MG/ML 2 ML SDV ONE; +Morphine 2 MG/ML SYRINGE IVPUSH PRN; +Naloxone 0.4 MG/ML SDV IVPUSH PRN; +Ondansetron 4 MG/2 ML SDV IVPUSH PRN; -Ondansetron 4 MG/2 ML SDV ONE; -Propofol 200 MG/20 ML SDV ONE; -Rocuronium Bromide 50 MG/5 ML Syringe ONE; +Sodium Chloride 0.9% 10 ML Syringe FLUSH PRN; +Sodium Chloride 0.9% 2.5 ML Syringe FLUSH PRN; +Sodium Chloride 0.9% 20 ML SDV IV PRN; +cefOXitin 2 GM in Premix Bag 1 BAG IV ONE; +fentaNYL 100 MCG/2 ML SDV IVPUSH PRN; -fentaNYL 100 MCG/2 ML SDV ONE
[2021-11-13] MEDS ORDERED: Bupivacaine Liposome 1.3% 20 ML SDV ONE (09:30)
[2021-11-13] MEDS ORDERED: Clindamycin Phosphate in D5W 50 ML ONE (11:09)
[2021-11-13] MEDS ORDERED: Famotidine 20 MG/2 ML SDV ONE (11:16)
[2021-11-13] MEDS ORDERED: Propofol 200 MG/20 ML SDV ONE (11:22)
[2021-11-13] MEDS ORDERED: Dexamethasone 4 MG/ML 5 ML MDV ONE (11:48)
[2021-11-13] MEDS ORDERED: Lidocaine 2% 5 ML SDV ONE (11:53)
[2021-11-13] MEDS ORDERED: Ketorolac 30 MG/ML SDV ONE (12:04)
[2021-11-13] MEDS ORDERED: Ondansetron 4 MG/2 ML SDV ONE (12:04)
[2021-11-13] MEDS ORDERED: ePHEDrine 50 MG/ML SDV ONE (12:17)
[2021-11-13] MEDS: HYDROmorphone 1 MG/ML Syringe IVPUSH PRN ×2 (13:23→13:33)
[2021-11-13] MEDS ORDERED: Acetaminophen/oxyCODONE 325-5 MG Tab PO PRN (14:36)
== END 2021-11-13 16:55 | disposition home or self-care (01) ==
LOC: MW.SDS 09:19
PROVIDERS: ATTEND Surgery
DX: K64.3 Fourth degree hemorrhoids (principal); I86.8 Varicose veins of other specified sites; K21.9 Gastro-esophageal reflux disease without esophagitis; J44.9 Chronic obstructive pulmonary disease, unspecified; I10 Essential (primary) hypertension; E78.00 Pure hypercholesterolemia, unspecified; E66.9 Obesity, unspecified; F41.9 Anxiety disorder, unspecified; Z88.8 Allergy status to other drugs, medicaments and biological substances; Z88.1 Allergy status to other antibiotic agents; Z79.899 Other long term (current) drug therapy; Z90.49 Acquired absence of other specified parts of digestive tract; Z98.890 Other specified postprocedural states; Z87.891 Personal history of nicotine dependence; Z68.37 Body mass index [BMI] 37.0-37.9, adult
CPT/HCPCS: 00902; A9270-GY; J0131; J1100; J1170; J1885; J2405; J2704; J3490; J7120